=== PATIENT | male | born 1975 | race Caucasian/White ===

== ENCOUNTER 2022-02-07 22:33 | Emergency (ER) | payer OTHER, SELFPAY ==
[2022-02-07 22:47] VITALS: BP 131/90; PULSE 72; RESP 15; TEMP 36.6; O2SAT 96; BMI 26.6
== END 2022-02-08 03:54 | disposition left against medical advice (07) ==
LOC: HO.ED 02-08 03:53
PROVIDERS: Emergency Provider Emergency Medicine
DX: M79.642 Pain in left hand (principal)
CPT/HCPCS: 99281